=== PATIENT | female | born 1985 | race Caucasian/White ===

== ENCOUNTER 2019-04-03 17:04 | Outpatient (CLI) | payer MEDICAID ==
[~2019-04-03] VITALS: Ht 165.1 cm; Wt 111.6 kg
[~2019-04-03 17:04] MED LIST: LAMICTAL200 MG PO; ZOFRAN ODT4 MG PO
--- NOTE | 2019-04-03 17:05 | NUR ---
Pt arrives on unit ambulatory with spouse for NST and lab work. Orders received from Dr. Pollack. See physician notification. EFM and toco applied. VSS. Clean catch UA obtained. Labs drawn. Admission assessment completed. Pt updated on POC. Safety reviewed. Bed locked in low position. Call light within reach. No questions or concerns at this time.
[2019-04-03 17:30] VITALS: BP 127/775; PULSE 93; TEMP 98.5
[2019-04-03 17:33] LABS: COLLECTION METHOD CLEAN CATCH
[2019-04-03 17:40] LABS: BASO % 0.2 % (0.0-2.0); EOS # 0.1 (0.0-0.7); EOS % 1.1 % (0-4.0); GRAN # 5.9 (1.4-6.5); GRAN % 68.7 % (42.2-75.2); HEMOGLOBIN 11.9 g/dl (12.5-16.0); LYMPH % 23.3 % (20.0-51.0); MEAN CELL VOLUME 90 fl (80.0-100.0); MEAN CORPUSCULAR HEMOGLOBIN 30 pg (27.0-31.0); MEAN CORPUSCULAR HGB CONC 34 g/dl (33.0-37.0); MEAN PLATELET VOLUME 10.6 fl (7.4-10.4); MONO # 0.6 (0.1-0.6); MONO % 6.5 % (1.7-9.3); PLATELET COUNT 192 K/mm3 (130-400); RED BLOOD COUNT 3.93 M/mm3 (4.10-5.30); REDCELL DISTRIBUTION WIDTH-CV 13.3 % (11.5-14.5)
[2019-04-03 17:43] LABS: HEMATOCRIT 35.4 % (37.0-47.0)
[2019-04-03 17:45] VITALS: BP 122/62; PULSE 88
[2019-04-03 17:52] LABS: ALBUMIN 3.4 gm/dL (3.5-5.0); BILIRUBIN,TOTAL 0.2 mg/dL (0.0-1.0); CALCIUM 8.6 mg/dL (8.4-10.2); CREATININE, serum 0.63 (0.52-1.25); POTASSIUM 3.9 mmol/L (3.4-5.0); TOTAL PROTEIN 6.8 gm/dL (6.4-8.2)
[2019-04-03 18:00] VITALS: BP 125/68; PULSE 86
[2019-04-03 18:00] LABS: MUCOUS Present /lpf; PH 5 (5-8); SQUAMOUS EPITHELIAL >50 /hpf; URINE APPEARANCE Cloudy; URINE BACTERIA Rare /hpf; URINE BILIRUBIN Negative (NEGATIVE); URINE BLOOD Negative (NEGATIVE); URINE COLOR Yellow; URINE GLUCOSE Negative (NEGATIVE); URINE KETONE Negative (NEGATIVE); URINE LEUKOCYTE ESTERASE 1+ (NEGATIVE); URINE NITRATE Negative (NEGATIVE); URINE PROTEIN(semi-quant) 1+ (NEGATIVE); URINE WBC 20-50 /hpf
[2019-04-03 18:05] VITALS: BP 119/72; PULSE 85
--- NOTE | 2019-04-03 18:10 | NUR ---
Pt taken off monitors. IV dc'd. Discharge instructions given. No questions or concerns at this time. Pt leaves unit ambulatory with spouse.
== END 2019-04-03 18:10 | disposition home or self-care (01) ==
LOC: LDR 17:04 → LDRO 17:04 → LDR 18:10 → LDRO 18:10 → EDSTATUS 04-08 06:10
PROVIDERS: Obstetrics & Gynecology
DX: O36.8930 Maternal care for other specified fetal problems, third trimester, not applicable or unspecified (principal); Z3A.34 34 weeks gestation of pregnancy
CPT/HCPCS: OP

== ENCOUNTER 2019-04-29 20:49 | Outpatient (CLI) | payer MEDICAID ==
[~2019-04-29] VITALS: Ht 165.1 cm; Wt 113.5 kg
[2019-04-29 21:12] VITALS: BP 131/90; PULSE 102
[2019-04-29 21:15] VITALS: BP 131/90; PULSE 102
[2019-04-29 21:30] VITALS: BP 130/82; PULSE 99
--- NOTE | 2019-04-29 21:30 | NUR ---
SVE as noted, pt disappointed and tearful about no cervical change since being seen at the [facility] office today, despite having contracted all day. Emotional support provided. Discussed importance of repeat exam by same nurse in hour being more definitive than change/no change from office exam.
[2019-04-29 22:10] VITALS: BP 130/80; PULSE 90
--- NOTE | 2019-04-29 22:22 | NUR ---
Off monitor, up to walk. Family doting at pt's side.
[2019-04-29 23:15] VITALS: BP 125/80; PULSE 87
--- NOTE | 2019-04-29 23:15 | NUR ---
Repeat SVE with no changes noted. Pt disappointed.
--- NOTE | 2019-04-29 23:30 | NUR ---
discharge instructions reviewed with pt and family. Questions invited and answered. Ambulatory off unit with family.
== END 2019-04-29 23:30 | disposition home or self-care (01) ==
LOC: LDRO 20:49
DX: O62.9 Abnormality of forces of labor, unspecified (principal); Z3A.38 38 weeks gestation of pregnancy

== ENCOUNTER 2019-05-02 05:22 | Inpatient (IN) | payer MEDICAID ==
[2019-05-02] VITALS (20 sets, daily range): BP systolic 107–160; BP diastolic 55–86; PULSE 77–126; TEMP 97.5–98.6
[~2019-05-02] VITALS: Ht 165.1 cm; Wt 113.2 kg
--- NOTE | 2019-05-02 05:20 | NUR ---
HERE FOR SROM AND LABOR CHECK. BREATHES HARD THRU Q 3 MIN CTXS STARTED AT 0030. 3/100/-3 BULGING BAG. FIANCE AND GIRLFRIEND HERE.
--- NOTE | 2019-05-02 06:20 | NUR ---
Report from Milagros Reyez RN, care of pt assumed. RN at bedside to update on plan of care. Pt repositioned self to LL. Pt breathing and crying through contractions, states she is "not going home". 0630 - SVE by Nayeli Umana RN -/-3. Membranes intact. Pt updated on plan of care. 0635 - Pt moving around at bedside, alternating between sitting upright in bed and standing at bedside. RN at bedside adjusting monitor.
[2019-05-02 08:16] LABS: BASO % 0.2 % (0.0-2.0); EOS % 0.3 % (0-4.0); GRAN % 79.8 % (42.2-75.2); HEMOGLOBIN 12.5 g/dl (12.5-16.0); LYMPH # 2.2 (1.2-3.4); LYMPH % 14.5 % (20.0-51.0); MEAN CELL VOLUME 90 fl (80.0-100.0); MEAN CORPUSCULAR HEMOGLOBIN 30 pg (27.0-31.0); MEAN CORPUSCULAR HGB CONC 33 g/dl (33.0-37.0); MEAN PLATELET VOLUME 11.1 fl (7.4-10.4); MONO # 0.7 (0.1-0.6); MONO % 4.7 % (1.7-9.3); PLATELET COUNT 166 K/mm3 (130-400); RED BLOOD COUNT 4.23 M/mm3 (4.10-5.30); REDCELL DISTRIBUTION WIDTH-CV 13.7 % (11.5-14.5)
--- NOTE | 2019-05-02 08:23 | NUR ---
SVE by Nayeli Umana RN /-1. See physician notification. 0825 - Purvi Wilson CRNA to bedside. Epidural placememt discussed and agreed to by pt. Pt repositioned and prepped for epidural. 0834 - Single shot by Purvi Wilson CRNA. See anesthesia record. 0838 - Pt repositioned into LL. Updated on plan of care.
--- NOTE | 2019-05-02 08:51 | NUR ---
Dr. Melendrez to pt bedside. Plan of care discussed. AROM by Dr. Melendrez at 0854, bloody show and clear fluid noted. SVE per physician /-1. Pt repositioned onto left side, resting comfortably.
--- NOTE | 2019-05-02 09:17 | NUR ---
Physician on unit, reviews FHR strip and interventions. No new orders at this time.
--- NOTE | 2019-05-02 09:31 | NUR ---
Physician on unit, reviews FHR strip. No new orders. Patient comfortable with epidural.
--- NOTE | 2019-05-02 10:18 | NUR ---
1018- Patient calls out reporting increased pain and pressure, crying through contractions. SVE AL/+1. Dr. Melendrez notified via phone and requested for impending delivery. Abdullahi Wilson CRNA notified and requested at bedside for pain control. See anesthesia record. 1021- SVE . Dr. Melendrez still in transit. Dr. Ortega on unit and requested at bedside.
--- NOTE | 2019-05-02 10:23 | NUR ---
1023 - Pt involuntarily pushing with contractions. Dr. Ortega on unit and called to room for delivery. 1027 - Dr. Ortega to pt bedside. SVE done, per physician pt complete. Pt prepped for delivery. 1030 - Pt started pushing with contractions. Viable female delivered via by Dr. Ortega at 1031. Infant placed on mother's abdomen, care transferred to Soila Frausto RN of nursery. Apgars 8/9/9. Care of pt transferred to Dr. Melendrez. See physician notes. 1033 - Cord clamped and cut by Dr. Melendrez. Pt bladder emptied by Dr. Melendrez with [place] Robbin at 1034. Perineum intact per physician. 1036 - Placenta delivered by Dr. Melendrez. pitocin started. Pericare provided, ice pack placed, pt repositioned for comfort. Updated on plan of care.
[2019-05-03 00:15] VITALS: BP 103/57; PULSE 81; TEMP 98.1
[2019-05-03 03:55] VITALS: BP 133/74; PULSE 78; TEMP 98.4
[2019-05-03] MEDS ORDERED: PERCOCET 325 MG1 TA2 PO (07:46)
[2019-05-03] MEDS ORDERED: IBU600 MG PO (07:46)
[2019-05-03 08:45] VITALS: BP 110/66; PULSE 79; TEMP 98.2
--- NOTE | 2019-05-03 12:30 | NUR ---
PATIENT DISCHARGE INSTRUCTIONS REVIEWED. SCRIPT FOR PERCOCET GIVEN. DISCHARGE TEACHING REVIEWED AND PATIENT VERBALIZES UNDERSTANDING. ESCORTED OUT TO VEHICLE.
== END 2019-05-03 12:50 | disposition home or self-care (01) | DRG 807 ==
LOC: LDRO 05:22 → LDR 05:22 → LDRO 07:28 → LDR 07:29 → OB 07:29 → LDR 10:44 → OB 13:21
PROVIDERS: Obstetrics & Gynecology; ADMIT Obstetrics & Gynecology
PROC: 10E0XZZ Delivery of Products of Conception, External Approach (ICD-10-PCS; principal; 2019-05-02)
PROC: 10907ZC Drainage of Amniotic Fluid, Therapeutic from Products of Conception, Via Natural or Artificial Opening (ICD-10-PCS; 2019-05-02)
DX: O80 Encounter for full-term uncomplicated delivery (principal); Z37.0 Single live birth; O99.824 Streptococcus B carrier state complicating childbirth; Z3A.38 38 weeks gestation of pregnancy
CPT/HCPCS: J2795; J7120

== ENCOUNTER → 2020-05-05 | Outpatient (CLI) | payer MEDICAID ==
[2005-12-16 08:14] VITALS: TEMP 98
[~2020-05-05] MED LIST changes: +IBU600 MG PO; +PERCOCET 325 MG1 TA2 PO; +PRENATAL
== END | disposition still patient (30) ==
LOC: ZCOL.LAB 08:00
DX: Z20.828 Contact with and (suspected) exposure to other viral communicable diseases (principal)

== ENCOUNTER 2020-05-09 06:17 | Inpatient (IN) | payer MEDICAID ==
[2020-05-09] VITALS (30 sets, daily range): BP systolic 107–147; BP diastolic 55–90; PULSE 68–113; TEMP 97.9–98.8
[~2020-05-09] VITALS: Ht 165.1 cm; Wt 115.9 kg
[~2020-05-09 06:17] MED LIST changes: -PRENATAL
[2020-05-09] MEDS ORDERED: PRENATAL (06:47)
--- NOTE | 2020-05-09 06:54 | NUR ---
[id number] 39.0 patient ambulatory to LR 5 for scheduled induction of labor. Denies complications of or any leaking of fluid, vaginal bleeding, or contractions. Reports good movement. Assisted into gown and placed on EFM. Reacitved FHR. VSS, IV to left hand, unable to obtain blood for labs. Lab notified for need to draw. Blood glucose obtained due to patient declined 1hr GTT testing in . Reports "they had been good so I haven't taken them." 114. Reports having had " a sip of Mt. Dew just now." Assessment complete. Consents reviewed and signed. WILBERTOE /-3, DIEGO. Pitocin per orders, see EMAR.
[2020-05-09 09:25] LABS: BASO % 0.1 % (0.0-2.0); EOS # 0.1 (0.0-0.7); EOS % 1.1 % (0-4.0); GRAN # 5.2 (1.4-6.5); HEMOGLOBIN 11.3 g/dl (12.5-16.0); LYMPH % 25.4 % (20.0-51.0); MEAN CELL VOLUME 90 fl (80.0-100.0); MEAN CORPUSCULAR HEMOGLOBIN 30 pg (27.0-31.0); MEAN CORPUSCULAR HGB CONC 33 g/dl (33.0-37.0); MEAN PLATELET VOLUME 11.4 fl (7.4-10.4); MONO # 0.6 (0.1-0.6); MONO % 7.1 % (1.7-9.3); PLATELET COUNT 176 K/mm3 (130-400); RED BLOOD COUNT 3.76 M/mm3 (4.10-5.30); REDCELL DISTRIBUTION WIDTH-CV 13.8 % (11.5-14.5)
--- NOTE | 2020-05-09 09:30 | NUR ---
0930-Difficulty tracing contractions due to maternal position of comfort RL. RN adjusts [place]. Roles on unit. Reviews FHR monitor.
--- NOTE | 2020-05-09 10:10 | NUR ---
1010-Dr. Hood on unit. Reviews FHR monitor. In to see patient. 1015-SVE by /-3, AROM clear fluid. Pericare provided. Repositioned WR. updated on plan of care. 1105-Patient up to bathroom. Requests epidural. Abdullahi Wilson CRNA notified. IVF bolus started. 1113-Patient sitting upright on bedside for epidural placement. 1117-Single shot by Abdullahi Wilson CRNA. Patient tolerates well. 1118-Epidural catheter placed by Abdullahi Wilson CRNA. Repostioned WR. 1125-Patient reports feeling a lot of pressure. SVE by this RN. 7-/-1. 1134-Patient says "the baby is coming I need to push." SVE by this RN /2. Dr. Hood requested to room.
--- NOTE | 2020-05-09 11:38 | NUR ---
1138-Patient began pushing with MD at bedside. Moves vertex well. 1139-Spontaneous delivery of head, nuchal x1 reduced by MD. Immediately followed by body. Viable female infant mouth and nares bulub suctioned by MD. Placed on mothers abdomen and cord clamped x2 by MD and cut by FOB. Care of infant assumed by nursery RAFIQ Bang,RAFIQ. 1142-Spontaneous delivery of intact placenta by MD. Fundal massage firm, Locha WNL. Perineum intact. Pericare provided. Updated on safety and plan of care.
--- NOTE | 2020-05-09 14:00 | NUR ---
Pt with full range of motion to lower extremeties, sits on the edge of the bed and feels stable. Abulates to the bathroom, steady, independently uses shoshana bottle and preforms pericare. No questions. Ambulates to room and would really like to shower, INT wrapped with plastic and provided items to shower with. Denies feeling lightheaded or dizzy, lochia WNL, minimal small clots, fundus firm.
--- NOTE | 2020-05-09 15:15 | NUR ---
Heart rate slightly elevated, pt reports pain in shoshana area 4/10, pain medications given per orders and heart rate down to 93 at 1600. Fundus located slightly above umbilicus, pt wanting to rest, will reassess soon.
[2020-05-10 07:25] VITALS: BP 128/72; PULSE 88; TEMP 98.1
[2020-05-10] MEDS ORDERED: IBU600 MG PO (10:18)
== END 2020-05-10 12:45 | disposition home or self-care (01) | DRG 807 ==
LOC: OB 06:17 → LDR 06:55 → OB 14:30
PROVIDERS: ADMIT Obstetrics & Gynecology
PROC: 10E0XZZ Delivery of Products of Conception, External Approach (ICD-10-PCS; principal; 2020-05-09)
PROC: 10907ZC Drainage of Amniotic Fluid, Therapeutic from Products of Conception, Via Natural or Artificial Opening (ICD-10-PCS; 2020-05-09)
DX: O24.429 Gestational diabetes mellitus in childbirth, unspecified control (principal); Z37.0 Single live birth; Z3A.39 39 weeks gestation of pregnancy
CPT/HCPCS: J2400; J2590; J2795; J7120